=== PATIENT | female | born 1930 | race Caucasian/White ===

== ENCOUNTER 2017-12-09 12:38 | Outpatient (CLI) | payer OTHER | END 2017-12-09 12:41 | disposition home or self-care (01) | LOC: SONOGRAMA 12:38 → MAMO-SONO 13:15 | DX: M75.51 Bursitis of right shoulder (principal) ==

== ENCOUNTER 2018-04-07 12:56 | Outpatient (CLI) | payer OTHER | END 2018-04-07 13:08 | disposition home or self-care (01) | LOC: TOM 12:56 | DX: S06.5X0A Traumatic subdural hemorrhage without loss of consciousness, initial encounter (principal) ==

== ENCOUNTER 2019-04-27 10:53 | Outpatient (CLI) | payer OTHER | END 2019-04-27 11:05 | disposition home or self-care (01) | LOC: NUCLEAR 10:53 | DX: M81.0 Age-related osteoporosis without current pathological fracture (principal) ==